=== PATIENT | female | born 1950 | race Caucasian/White ===

== ENCOUNTER 2020-11-20 21:41 | Observation (INO) | payer MEDICARE ==
[2020-11-20] MEDS ORDERED: DECADRON 10MG INJ. IV ONE (22:06)
[2020-11-20] MEDS ORDERED: Zofran 4 MG/2 ML VIAL IV ONE (22:09)
[2020-11-20] MEDS ORDERED: DECADRON 10MG INJ. ONE (22:11)
[2020-11-20] MEDS ORDERED: Zofran 4 MG/2 ML VIAL ONE (22:11)
[2020-11-20 22:15] LABS: Absolute Neutrophil Ct (ANC) 2.46 (1.4-6.9); BASOPHIL % 0.5 % (0.0-0.4); Basophil (Absolute #) 0.02 (0-0.4); Eosinophil % 0.5 % (0.00-5.0); Eosinophil (Absolute #) 0.02 (0-0.5); Hematocrit 43.9 % (35-47); Hemoglobin 14.3 gm/dl (12.0-16.0); Lymphocyte (Absolute #) 1.35 (1.0-4.6); Lymphocytes % 32.1 % (24.0-44.0); Mean Cell Volume 87.5 fl (78-100); Mean Corpuscular Hemoglobin 28.5 pg (26-32); Mean Corpuscular Hgb Concent. 32.6 g/dl (32-36); Mean Platelet Volume 11.6 fl (7.5-11.0); Monocyte (Absolute #) 0.35 (0.0-1.3); Monocytes % 8.3 % (0.0-12.0); Neutrophil % 58.6 % (36.0-66.0); Platelet Count 171 K/mm3 (150-450); Red Blood Count 5.02 M/mm3 (4.1-5.4); Red Cell Distribution Width 13.1 % (11.5-14.0); White Blood Count 4.2 K/mm3 (4.0-10.5)
[2020-11-20 22:32] LABS: ALBUMIN 4.1 g/dL (3.5-5.0); ALKALINE PHOSPHATASE 69 U/L (38-126); BLOOD UREA NITROGEN 11 mg/dL (7-17); CHLORIDE 106 mmol/L (98-107); Carbon Dioxide 20 mmol/L (22-30); Creatinine 1 0.86 mg/dL (0.52-1.04); EST GLOMERULAR FILTRATION RATE > 60.0 ML/MIN; NT PRO BNP 170 pg/mL (0-900); Potassium 4.5 mmol/L (3.5-5.1); SGOT/AST 76 U/L (14-36); SGPT/ALT 74 U/L (0-35); SODIUM 134 mmol/L (137-145); Total Protein 7.4 g/dL (6.3-8.2)
[2020-11-20 22:33] LABS: Glucose 151 mg/dL (74-106)
[2020-11-20 23:29] LABS: Appearance SLIGHTLY CLOUDY (CLEAR); Bilirubin NEGATIVE (NEGATIVE); Blood SMALL Ery/ul (0-5); Epithelial Cells RARE /HPF (FEW); Glucose NEGATIVE (NEGATIVE); Ketones NEGATIVE (NEGATIVE); Leukocyte Esterase NEGATIVE (NEGATIVE); Mucus SLIGHT /HPF (NEGATIVE); Nitrite NEGATIVE (NEGATIVE); Protein,Urine Dip NEGATIVE (Negative); RBC 0-2 /HPF (0-2); Urobilinogen NEGATIVE mg/dL (0-1); WBC 0-2 /HPF (0-5)
[2020-11-20] MEDS ORDERED: TYLENOL 325 MG PO STA (23:36)
[2020-11-20] MEDS ORDERED: TYLENOL 325 MG ONE (23:36)
--- NOTE | 2020-11-20 23:52 | ERPHSYRPT ---
- History of Present Illness Time Seen by Provider: 11/20/20 21:45 Source: patient Exam Limitations: no limitations Patient Subjective Stated Complaint: " I have felt short of breath since Monday and it's getting worse, I think I have pneumonia. I've had a cough and headache and I vomited twice on my way here. I felt like I was going to ". Triage Nursing Assessment: Pt presents to ER with complaints of shortness of breath since Monday . Pt is alert and oriented x3. Respirations slightly labored at this time, lungs clear and equal throughout. Has intermittent productive cough. Skin is pink, warm, and dry. Pt admits to vomiting x 2 en route to hospital, denies diarrrhea. Complains of headache and rates pain 8/10 scale. Denies any recent Covid exposure that she is aware of. Physician History: Patient is a 70-year-old female presents to our emergency department with complaints of progressive shortness of breath. Symptoms started Monday approximately 1 week ago. Patient states that she feels significantly worse. Patient admits to a productive cough. Patient has a moderate global headache rated 8 out of 10. No trauma. No fever. No neck pain. No photophobia. Patient has no meningeal signs. Patient vomited twice in route to our ED. Patient denies numbness tingling or weakness. No chest pain. Patient voices no other complaints concerns at this time. Patient denies Covid exposure. Timing/Duration: week(s) Severity: moderate Modifying Factors: Improves With: movement, rest Associated Symptoms: nausea, vomiting, shortness of breath, cough, No chest pain, No fever Allergies/Adverse Reactions: No Known Drug Allergies Allergy (Verified 11/20/20 21:50) Hx Tetanus, Diphtheria Vaccination/Date Given: Yes Hx Influenza Vaccination/Date Given: Yes Hx Pneumococcal Vaccination/Date Given: Yes Immunizations Up to Date: Yes Travel Risk - International Travel Have you traveled outside of the country in past 3 weeks: No - Coronavirus Screening Are you exhibiting any of the following symptoms?: Yes Symptoms: Fever, Cough: New Onset, Shortness of Breath, Vomiting/Diarrhea, Headaches/Body Aches/Fatigue - Review of Systems Constitutional: No Symptoms, No Fever, No Chills Eyes: No Symptoms Ears, Nose, & Throat: No Symptoms Respiratory: No Symptoms, No Cough, No Dyspnea Cardiac: No Symptoms, No Chest Pain, No Edema, No Syncope Abdominal/Gastrointestinal: No Symptoms, No Abdominal Pain, No Nausea, No Vomiting, No Diarrhea Genitourinary Symptoms: No Symptoms, No Dysuria Musculoskeletal: No Symptoms, No Back Pain, No Neck Pain Skin: No Symptoms, No Rash Neurological: No Symptoms, No Dizziness, No Focal Weakness, No Sensory Changes Psychological: No Symptoms Endocrine: No Symptoms Hematologic/Lymphatic: No Symptoms Immunological/Allergic: No Symptoms All Other Systems: Reviewed and Negative - Past Medical History Pertinent Past Medical History: Yes Neurological History: No Pertinent History ENT History: Cataracts Cardiac History: No Pertinent History Respiratory History: No Pertinent History Endocrine Medical History: No Pertinent History Musculoskeletal History: Arthritis GI Medical History: Irritable Bowel History: No Pertinent History Psycho-Social History: No Pertinent History Female Reproductive Disorders: No Pertinent History Other Medical History: left middle finger pip joint. just starting,. - Past Surgical History Past Surgical History: Yes Neuro Surgical History: No Pertinent History Cardiac: No Pertinent History Respiratory: No Pertinent History Gastrointestinal: Hemorrhoidectomy Genitourinary: No Pertinent History Musculoskeletal: No Pertinent History Female Surgical History: Hysterectomy, Other Other Surgical History: bridger cataract removed with lense implants,wens removed from scalp. d&c - Social History Smoking Status: Never smoker Exposure to second hand smoke: No Drug Use: none Patient Lives Alone: No - Nursing Vital Signs Nursing Vital Signs: Initial Vital Signs Temperature 99.9 F 11/20/20 21:42 Pulse Rate 89 11/20/20 21:42 Respiratory Rate 20 11/20/20 21:42 Blood Pressure 161/101 11/20/20 21:42 O2 Sat by Pulse Oximetry 94 L 11/20/20 21:42 Pain Scale Pain Intensity 7 - Physical Exam General Appearance: no apparent distress, alert Eye Exam: PERRL/EOMI, eyes nml inspection Ears, Nose, Throat Exam: normal ENT inspection, TMs normal, pharynx normal, moist mucous membranes Neck Exam: normal inspection, non-tender, supple, full range of motion Respiratory Exam: diminished breath sounds, other (Clear but diminished breath sounds bilaterally. No acute respiratory distress.), No respiratory distress Cardiovascular Exam: regular rate/rhythm, normal heart sounds, normal peripheral pulses Gastrointestinal/Abdomen Exam: soft, normal bowel sounds, No tenderness, No mass Back Exam: normal inspection, normal range of motion, No CVA tenderness, No vertebral tenderness Extremity Exam: normal inspection, normal range of motion, pelvis stable Neurologic Exam: alert, oriented x 3, cooperative, normal mood/affect, nml cereb ellar function, nml station & gait, sensation nml, No motor deficits Skin Exam: normal color, warm, dry, No rash Lymphatic Exam: No adenopathy SpO2 Interpretation: normal SpO2: 97 O2 Delivery: Room Air - Course Nursing assessment & vital signs reviewed: Yes EKG Interpreted by Me: RATE (89), Sinus Rhythm, NORMAL AXIS, NORMAL INTERVALS - Radiology Exams Chest X-ray Interpretation: Interpreted by me (Atelectasis at bases. No cardiomegaly normal bony thorax. No pneumothorax.) Ordered Tests: Active Orders 24 hr Category Date Time Status Capacitor Repairer STAT Care 11/20/20 22:02 Active EKG-ER Only STAT Care 11/20/20 22:01 Active IV Insertion STAT Care 11/20/20 22:01 Active IV Insertion-2nd Peripheral STAT Care 11/20/20 22:07 Active Oxygen-ED Only Nasal Cannula 2 lpm Care 11/20/20 22:07 Active Pulse Oximetry (ED) STAT Care 11/20/20 22:01 Active CHEST 1 VIEW (PORTABLE) Stat Exams 11/20/20 22:02 Taken CBC W DIFF Stat Lab 11/20/20 21:50 Completed CMP Stat Lab 11/20/20 21:50 Completed MAGNESIUM Stat Lab 11/20/20 21:50 Completed NT PRO BNP Stat Lab 11/20/20 21:50 Completed TROPONIN Q3H Lab 11/20/20 21:50 Completed TROPONIN Q3H Lab 11/21/20 01:15 Ordered TROPONIN Q3H Lab 11/21/20 04:15 Ordered TROPONIN Q3H Lab 11/21/20 07:15 Ordered TROPONIN Q3H Lab 11/21/20 10:15 Ordered UA W/RFX UR CULTURE Stat Lab 11/20/20 23:18 Completed Medication Summary Discontinued Medications Generic Name Dose Route Start Last Admin Trade Name Freq PRN Reason Stop Dose Admin Acetaminophen 975 mg 11/20/20 23:36 11/20/20 23:37 Tylenol 325 Mg PO 11/20/20 23:37 975 mg STAT STA Administration Acetaminophen Confirm 11/20/20 23:36 Tylenol 325 Mg Administered 11/20/20 23:37 Dose 975 mg .ROUTE .STK-MED ONE Dexamethasone Sodium Phosphate 6 mg 11/20/20 22:06 11/20/20 22:13 Decadron 10mg Inj. IV 11/20/20 22:07 6 mg STAT ONE Administration Dexamethasone Sodium Phosphate Confirm 11/20/20 22:11 Decadron 10mg Inj. Administered 11/20/20 22:12 Dose 10 mg .ROUTE .STK-MED ONE Ondansetron HCl 4 mg 11/20/20 22:09 11/20/20 22:13 Zofran 4 Mg/2 Ml Vial IV 11/20/20 22:10 4 mg STAT ONE Administration Ondansetron HCl Confirm 11/20/20 22:11 Zofran 4 Mg/2 Ml Vial Administered 11/20/20 22:12 Dose 4 mg .ROUTE .STK-MED ONE Lab/Rad Data: Laboratory Result Diagrams 11/20/20 21:50 11/20/20 21:50 Laboratory Results 11/20/20 11/20/20 11/20/20 Range/Units 23:18 22:29 21:50 WBC (4.0-10.5) K/mm3 RBC (4.1-5.4) M/mm3 Hgb (12.0-16.0) gm/dl Hct (35-47) % MCV (78-100) fl MCH (26-32) pg MCHC (32-36) g/dl RDW (11.5-14.0) % Plt Count (150-450) K/mm3 MPV (7.5-11.0) fl Gran % (36.0-66.0) % Eos # (Auto) (0-0.5) Absolute Lymphs (auto) (1.0-4.6) Absolute Monos (auto) (0.0-1.3) Lymphocytes % (24.0-44.0) % Monocytes % (0.0-12.0) % Eosinophils % (0.00-5.0) % Basophils % (0.0-0.4) % Absolute Granulocytes (1.4-6.9) Basophils # (0-0.4) Sodium (137-145) mmol/L Potassium (3.5-5.1) mmol/L Chloride (98-107) mmol/L Carbon Dioxide (22-30) mmol/L Anion Gap (5-15) MEQ/L BUN (7-17) mg/dL Creatinine (0.52-1.04) mg/dL Estimated GFR ML/MIN Glucose (74-106) mg/dL Calcium (8.4-10.2) mg/dL Magnesium (1.6-2.3) mg/dL Total Bilirubin (0.2-1.3) mg/dL AST (14-36) U/L ALT (0-35) U/L Alkaline Phosphatase (38-126) U/L Troponin I < 0.012 (0.000-0.034) ng/mL NT-Pro-B Natriuret Pep (0-900) pg/mL Serum Total Protein (6.3-8.2) g/dL Albumin (3.5-5.0) g/dL Urine Color YELLOW (YELLOW) Urine Appearance SLIGHTLY CLOUDY (CLEAR) Urine pH 5.0 (5-6) Ur Specific Cougar 1.020 (1.005-1.025) Urine Protein NEGATIVE (Negative) Urine Ketones NEGATIVE (NEGATIVE) Urine Blood SMALL (0-5) Desmond/ul Urine Nitrite NEGATIVE (NEGATIVE) Urine Bilirubin NEGATIVE (NEGATIVE) Urine Urobilinogen NEGATIVE (0-1) mg/dL Ur Leukocyte Esterase NEGATIVE (NEGATIVE) Urine WBC (Auto) 0-2 (0-5) /HPF Urine RBC (Auto) 0-2 (0-2) /HPF U Epithel Cells (Auto) RARE (FEW) /HPF Urine Bacteria (Auto) NONE (NEGATIVE) /HPF Urine Mucus (Auto) SLIGHT (NEGATIVE) /HPF Urine Culture Reflexed NO (NO) Urine Glucose NEGATIVE (NEGATIVE) mg/dL SARS-CoV-2 (PCR) POSITIVE A (NEGATIVE) 11/20/20 11/20/20 Range/Units 21:50 21:50 WBC 4.2 (4.0-10.5) K/mm3 RBC 5.02 (4.1-5.4) M/mm3 Hgb 14.3 (12.0-16.0) gm/dl Hct 43.9 (35-47) % MCV 87.5 (78-100) fl MCH 28.5 (26-32) pg MCHC 32.6 (32-36) g/dl RDW 13.1 (11.5-14.0) % Plt Count 171 (150-450) K/mm3 MPV 11.6 H (7.5-11.0) fl Gran % 58.6 (36.0-66.0) % Eos # (Auto) 0.02 (0-0.5) Absolute Lymphs (auto) 1.35 (1.0-4.6) Absolute Monos (auto) 0.35 (0.0-1.3) Lymphocytes % 32.1 (24.0-44.0) % Monocytes % 8.3 (0.0-12.0) % Eosinophils % 0.5 (0.00-5.0) % Basophils % 0.5 (0.0-0.4) % Absolute Granulocytes 2.46 (1.4-6.9) Basophils # 0.02 (0-0.4) Sodium 134 L (137-145) mmol/L Potassium 4.5 (3.5-5.1) mmol/L Chloride 106 (98-107) mmol/L Carbon Dioxide 20 L (22-30) mmol/L Anion Gap 12.0 (5-15) MEQ/L BUN 11 (7-17) mg/dL Creatinine 0.86 (0.52-1.04) mg/dL Estimated GFR > 60.0 ML/MIN Glucose 151 H (74-106) mg/dL Calcium 9.0 (8.4-10.2) mg/dL Magnesium 2.0 (1.6-2.3) mg/dL Total Bilirubin 0.70 (0.2-1.3) mg/dL AST 76 H (14-36) U/L ALT 74 H (0-35) U/L Alkaline Phosphatase 69 (38-126) U/L Troponin I (0.000-0.034) ng/mL NT-Pro-B Natriuret Pep 170 (0-900) pg/mL Serum Total Protein 7.4 (6.3-8.2) g/dL Albumin 4.1 (3.5-5.0) g/dL Urine Color (YELLOW) Urine Appearance (CLEAR) Urine pH (5-6) Ur Specific [place]ougar (1.005-1.025) Urine Protein (Negative) Urine Ketones (NEGATIVE) Urine Blood (0-5) Desmond/ul Urine Nitrite (NEGATIVE) Urine Bilirubin (NEGATIVE) Urine Urobilinogen (0-1) mg/dL Ur Leukocyte Esterase (NEGATIVE) Urine WBC (Auto) (0-5) /HPF Urine RBC (Auto) (0-2) /HPF U Epithel Cells (Auto) (FEW) /HPF Urine Bacteria (Auto) (NEGATIVE) /HPF Urine Mucus (Auto) (NEGATIVE) /HPF Urine Culture Reflexed (NO) Urine Glucose (NEGATIVE) mg/dL SARS-CoV-2 (PCR) (NEGATIVE) - Progress Progress: improved Progress Note: 11/20/20 23:58 Patient ambulated in the room. Patient sats dropped down to 91 to 92%. Patient felt very weak and fatigued. Patient requested admission due to feeling debilitated. Chest x-ray reviewed. No consolidation or infiltrate observed. No old chest x-rays for comparison. No pneumothorax. Patient is Covid positive. Decadron administered. Case discussed with Dr. Liu who accepts admission to the Covid unit. Plan of care discussed with patient. She agrees to admission at [facility] for further evaluation and treatment. Will see patient in: hospital (observation) Counseled pt/family regarding: lab results, diagnosis, rad results - Departure Departure Disposition: Observation Clinical Impression: COVID-19, Hypoxia, Generalized weakness, Nausea & vomiting, Cough Condition: Stable Critical Care Time: No Referrals: MAZIN NELSON NP [Primary Care Provider] -
[2020-11-21 05:00] LABS: Absolute Neutrophil Ct (ANC) 2.93 (1.4-6.9); BASOPHIL % 0.3 % (0.0-0.4); Basophil (Absolute #) 0.01 (0-0.4); Eosinophil (Absolute #) 0 (0-0.5); Hematocrit 43.2 % (35-47); Hemoglobin 14.1 gm/dl (12.0-16.0); Lymphocyte (Absolute #) 0.94 (1.0-4.6); Lymphocytes % 23.9 % (24.0-44.0); Mean Corpuscular Hemoglobin 28.7 pg (26-32); Mean Corpuscular Hgb Concent. 32.6 g/dl (32-36); Mean Platelet Volume 11.4 fl (7.5-11.0); Monocyte (Absolute #) 0.06 (0.0-1.3); Monocytes % 1.5 % (0.0-12.0); Neutrophil % 74.3 % (36.0-66.0); Platelet Count 158 K/mm3 (150-450); Red Blood Count 4.91 M/mm3 (4.1-5.4); Red Cell Distribution Width 13.1 % (11.5-14.0); White Blood Count 3.9 K/mm3 (4.0-10.5)
[2020-11-21 05:29] LABS: ALKALINE PHOSPHATASE 75 U/L (38-126); ANION GAP 11.2 MEQ/L (5-15); BLOOD UREA NITROGEN 12 mg/dL (7-17); CHLORIDE 104 mmol/L (98-107); Calcium 9.1 mg/dL (8.4-10.2); Carbon Dioxide 23 mmol/L (22-30); Creatinine 1 0.83 mg/dL (0.52-1.04); EST GLOMERULAR FILTRATION RATE > 60.0 ML/MIN; Glucose 241 mg/dL (74-106); Potassium 4.3 mmol/L (3.5-5.1); SGOT/AST 54 U/L (14-36); SGPT/ALT 69 U/L (0-35); SODIUM 134 mmol/L (137-145); Total Protein 7.3 g/dL (6.3-8.2)
--- NOTE | 2020-11-21 08:25 | XRAY ---
Indication: Short of breath. Comparison: None Portable apical lordotic chest clear. Heart and mediastinal structures within normal limits. Bony thorax intact with mild degenerative changes. Impression: Nonacute chest.
[2020-11-21 08:47] VITALS: BP 121/67; PULSE 83
[2020-11-21 09:09] VITALS: O2SAT 94
== END 2020-11-21 10:40 | disposition home or self-care (01) ==
LOC: ED 21:41 → MED SURG 11-21 00:02
PROVIDERS: ADMIT Family Medicine; ATTEND Family Medicine
DX: U07.1 COVID-19 (principal); R51.9 Headache, unspecified; R11.2 Nausea with vomiting, unspecified; R53.1 Weakness; R09.02 Hypoxemia
CPT/HCPCS: 36000; 36415; 71045; 80053; 81001; 83735; 83880; 84484; 85025; 93005; 93041; 93268; 94760; 94762; 96374; 96375; 99285; G0378; U0003; J1100; J2405; A9270-GY

== ENCOUNTER 2020-11-25 12:35 | Emergency (ER) | payer MEDICARE ==
[2020-11-25 13:22] LABS: Hematocrit 42.1 % (35-47); Hemoglobin 13.8 gm/dl (12.0-16.0); Mean Cell Volume 87.7 fl (78-100); Mean Corpuscular Hemoglobin 28.8 pg (26-32); Mean Corpuscular Hgb Concent. 32.8 g/dl (32-36); Mean Platelet Volume 11.5 fl (7.5-11.0); Platelet Count 181 K/mm3 (150-450); White Blood Count 4.3 K/mm3 (4.0-10.5)
[2020-11-25 13:35] LABS: Appearance SLIGHTLY CLOUDY (CLEAR); Bilirubin NEGATIVE (NEGATIVE); Blood NEGATIVE Ery/ul (0-5); Epithelial Cells RARE /HPF (FEW); Glucose NEGATIVE (NEGATIVE); Ketones NEGATIVE (NEGATIVE); Leukocyte Esterase NEGATIVE (NEGATIVE); Mucus SLIGHT /HPF (NEGATIVE); Nitrite NEGATIVE (NEGATIVE); Protein,Urine Dip NEGATIVE (Negative); Specific Gravity 1.023 (1.005-1.025); Urobilinogen NEGATIVE mg/dL (0-1); WBC 0-2 /HPF (0-5)
--- NOTE | 2020-11-25 13:39 | XRAY ---
Indication: Short of breath. Positive Covid 19. Comparison: November 20, 2020. Portable chest demonstrates new mild bibasilar interstitial alveolar opacities left greater than right without consolidation/large effusion. Remaining heart and upper lungs unremarkable.
[2020-11-25 14:03] LABS: ALBUMIN 3.9 g/dL (3.5-5.0); ALKALINE PHOSPHATASE 79 U/L (38-126); ANION GAP 12.1 MEQ/L (5-15); BLOOD UREA NITROGEN 14 mg/dL (7-17); CHLORIDE 103 mmol/L (98-107); Calcium 8.3 mg/dL (8.4-10.2); Carbon Dioxide 22 mmol/L (22-30); Creatinine 1 0.72 mg/dL (0.52-1.04); EST GLOMERULAR FILTRATION RATE > 60.0 ML/MIN; Glucose 164 mg/dL (74-106); MAGNESIUM 2.3 mg/dL (1.6-2.3); NT PRO BNP 108 pg/mL (0-900); Potassium 4.3 mmol/L (3.5-5.1); SGOT/AST 82 U/L (14-36); SGPT/ALT 84 U/L (0-35); SODIUM 133 mmol/L (137-145); Total Protein 7.2 g/dL (6.3-8.2)
--- NOTE | 2020-11-25 14:06 | ERPHSYRPT ---
- History of Present Illness Time Seen by Provider: 11/25/20 12:44 Source: patient Exam Limitations: no limitations Patient Subjective Stated Complaint: Pt states "I am not getting any better. I tested positive for covid on monday of last week here and was released on mon. I just feel horrible." Triage Nursing Assessment: Pt presented alert and oriented X3, skin pwd Pt ambulates with a slow steady gait, able to speak in clear full sentences pt slighty tachypneic, generalized weakness, Physician History: 70 years old female with positive COVID-19 almost a week ago was admitted for observation presented back with increasing generalized weakness fatigue, tiredness with body aches and shortness of breath especially with activity along with chest tightness and pressure feeling with dry cough. Patient also has a subjective feeling of fever and chills. Denies any abdominal pain but has occasional nausea without vomiting. Has decreased oral intake. Timing/Duration: day(s) (10) Activities at Onset: rest Severity of Dyspnea-Max: moderate Severity of Dyspnea-Current: moderate Modifying Factors: Worsens With: activity, coughing, deep breath Associated Symptoms: intermittent, cough, chest pain/discomfort, loss of appetite, lightheadedness, wheezing, chills, dizziness, heaviness, painful breathing, tightness Allergies/Adverse Reactions: No Known Drug Allergies Allergy (Verified 11/20/20 21:50) Hx Tetanus, Diphtheria Vaccination/Date Given: Yes Hx Influenza Vaccination/Date Given: Yes Hx Pneumococcal Vaccination/Date Given: Yes Immunizations Up to Date: Yes Travel Risk - International Travel Have you traveled outside of the country in past 3 weeks: No - Coronavirus Screening Are you exhibiting any of the following symptoms?: Yes Symptoms: Shortness of Breath, Headaches/Body Aches/Fatigue Close contact with a COVID-19 positive Pt in past 14-21 Days: No - Review of Systems Constitutional: Fever, Chills, Fatigue, Malaise, Weakness Eyes: No Symptoms Ears, Nose, & Throat: Nose Congestion Respiratory: Cough, Dyspnea Cardiac: Chest Pain Genitourinary Symptoms: No Symptoms Musculoskeletal: Myalgias Skin: No Symptoms Neurological: No Symptoms Psychological: No Symptoms Endocrine: No Symptoms Hematologic/Lymphatic: No Symptoms Immunological/Allergic: No Symptoms - Past Medical History Pertinent Past Medical History: Yes Neurological History: No Pertinent History ENT History: Cataracts Cardiac History: No Pertinent History Respiratory History: No Pertinent History Endocrine Medical History: No Pertinent History Musculoskeletal History: Arthritis GI Medical History: Irritable Bowel History: No Pertinent History Psycho-Social History: No Pertinent History Female Reproductive Disorders: No Pertinent History Other Medical History: left middle finger pip joint. just starting,. - Past Surgical History Past Surgical History: Yes Neuro Surgical History: No Pertinent History Cardiac: No Pertinent History Respiratory: No Pertinent History Gastrointestinal: Hemorrhoidectomy Genitourinary: No Pertinent History Musculoskeletal: No Pertinent History Female Surgical History: Hysterectomy, Other Other Surgical History: bridger cataract removed with lense implants,wens removed from scalp. d&c - Social History Smoking Status: Never smoker Exposure to second hand smoke: No Drug Use: none Patient Lives Alone: No - Female History Hx Now: No - Nursing Vital Signs Nursing Vital Signs: Initial Vital Signs Temperature 98.9 F 11/25/20 12:47 Pulse Rate 91 H 11/25/20 12:47 Respiratory Rate 22 11/25/20 12:47 Blood Pressure 152/97 11/25/20 12:47 O2 Sat by Pulse Oximetry 94 L 11/25/20 12:47 Pain Scale Pain Intensity 4 - Physical Exam General Appearance: no apparent distress, alert, anxiety Eye Exam: PERRL/EOMI, eyes nml inspection Ears, Nose, Throat Exam: hearing grossly normal, nasal congestion, pharyngeal erythema Neck Exam: normal inspection, supple, full range of motion Respiratory Exam: normal breath sounds, diminished breath sounds, crackles/rales, wheezing Cardiovascular/Chest Exam: normal heart sounds, regular rate/rhythm Abdominal/Gastrointestinal Exam: soft, normal bowel sounds, No tenderness Extremity Exam: non-tender, normal range of motion Neurologic Exam: alert, oriented x 3, cooperative, transformer builder II-XII nml as tested Skin Exam: normal color SpO2 Interpretation: normal SpO2: 94 O2 Delivery: Room Air Ordered Tests: Active Orders 24 hr Category Date Time Status Public Services Librarian STAT Care 11/25/20 13:12 Active EKG-ER Only STAT Care 11/25/20 13:11 Active IV Insertion STAT Care 11/25/20 13:11 Active Oxygen-ED Only Nasal Cannula 2 lpm Care 11/25/20 13:11 Active CHEST 1 VIEW (PORTABLE) Stat Exams 11/25/20 13:12 Completed CHEST WITH CONTRAST [CT] Stat Exams 11/25/20 14:39 Completed BLOOD CULTURE Stat Lab 11/25/20 13:45 Received CBC W DIFF Stat Lab 11/25/20 13:28 Completed CMP Stat Lab 11/25/20 13:28 Completed D-DIMER QUANTITATIVE Stat Lab 11/25/20 14:02 Completed Lactic Acid Stat Lab 11/25/20 13:11 Completed MAGNESIUM Stat Lab 11/25/20 13:28 Completed Manual Differential NC Stat Lab 11/25/20 13:28 Completed NT PRO BNP Stat Lab 11/25/20 13:28 Completed PROTIME WITH INR Stat Lab 11/25/20 14:02 Completed PTT Stat Lab 11/25/20 14:02 Completed TROPONIN Q3H Lab 11/25/20 13:28 Completed TROPONIN Q3H Lab 11/26/20 01:15 Ordered UA W/RFX UR CULTURE Stat Lab 11/25/20 13:28 Completed Respiratory MDI STAT RT 11/25/20 16:24 Active Respiratory Therapy Assessment DAILY RT 11/25/20 16:25 Active Medication Summary Discontinued Medications Generic Name Dose Route Start Last Admin Trade Name Freq PRN Reason Stop Dose Admin Albuterol Sulfate 4 puff 11/25/20 15:31 11/25/20 16:00 Ventolin Common Canister IH 11/25/20 15:32 4 puff ONCE STA Administration Dexamethasone Sodium Phosphate 6 mg 11/25/20 15:31 11/25/20 15:48 Decadron 4 Mg Inj IV 11/25/20 15:32 6 mg STAT ONE Administration Dexamethasone Sodium Phosphate Confirm 11/25/20 15:46 Decadron 4 Mg Inj Administered 11/25/20 15:47 Dose 8 mg .ROUTE .STK-MED ONE Doxycycline Hyclate 100 mg 11/25/20 16:02 11/25/20 16:36 Vibramycin 100 Mg PO 11/25/20 16:03 100 mg STAT ONE Administration Doxycycline Hyclate Confirm 11/25/20 16:33 Vibramycin 100 Mg Administered 11/25/20 16:34 Dose 100 mg .ROUTE .STK-MED ONE Lab/Rad Data: Laboratory Result Diagrams 11/25/20 13:28 11/25/20 13:28 Laboratory Results 11/25/20 11/25/20 11/25/20 Range/Units 14:02 13:28 13:28 WBC (4.0-10.5) K/mm3 RBC (4.1-5.4) M/mm3 Hgb (12.0-16.0) gm/dl Hct (35-47) % MCV (78-100) fl MCH (26-32) pg MCHC (32-36) g/dl RDW (11.5-14.0) % Plt Count (150-450) K/mm3 MPV (7.5-11.0) fl PT 12.2 (9.95-12.35) SECONDS INR 1.08 (0.8-3.0) APTT 28.2 (25.3-37.0) SECONDS D-Dimer 870 H* (215-500) ng/mL Sodium (137-145) mmol/L Potassium (3.5-5.1) mmol/L Chloride (98-107) mmol/L Carbon Dioxide (22-30) mmol/L Anion Gap (5-15) MEQ/L BUN (7-17) mg/dL Creatinine (0.52-1.04) mg/dL Estimated GFR ML/MIN Glucose (74-106) mg/dL Lactic Acid (0.4-2.0) Calcium (8.4-10.2) mg/dL Magnesium (1.6-2.3) mg/dL Total Bilirubin (0.2-1.3) mg/dL AST (14-36) U/L ALT (0-35) U/L Alkaline Phosphatase (38-126) U/L Troponin I < 0.012 (0.000-0.034) ng/mL NT-Pro-B Natriuret Pep (0-900) pg/mL Serum Total Protein (6.3-8.2) g/dL Albumin (3.5-5.0) g/dL Urine Color YELLOW (YELLOW) Urine Appearance SLIGHTLY CLOUDY (CLEAR) Urine pH 5.0 (5-6) Ur Specific [place] 1.023 (1.005-1.025) Urine Protein NEGATIVE (Negative) Urine Ketones NEGATIVE (NEGATIVE) Urine Blood NEGATIVE (0-5) Desmond/ul Urine Nitrite NEGATIVE (NEGATIVE) Urine Bilirubin NEGATIVE (NEGATIVE) Urine Urobilinogen NEGATIVE (0-1) mg/dL Ur Leukocyte Esterase NEGATIVE (NEGATIVE) Urine WBC (Auto) 0-2 (0-5) /HPF Urine RBC (Auto) NONE (0-2) /HPF U Epithel Cells (Auto) RARE (FEW) /HPF Urine Mucus (Auto) SLIGHT (NEGATIVE) /HPF Urine Culture Reflexed NO (NO) Urine Glucose NEGATIVE (NEGATIVE) mg/dL 11/25/20 11/25/20 11/25/20 Range/Units 13:28 13:28 13:11 WBC 4.3 (4.0-10.5) K/mm3 RBC 4.80 (4.1-5.4) M/mm3 Hgb 13.8 (12.0-16.0) gm/dl Hct 42.1 (35-47) % MCV 87.7 (78-100) fl MCH 28.8 (26-32) pg MCHC 32.8 (32-36) g/dl RDW 13.0 (11.5-14.0) % Plt Count 181 (150-450) K/mm3 MPV 11.5 H (7.5-11.0) fl PT (9.95-12.35) SECONDS INR (0.8-3.0) APTT (25.3-37.0) SECONDS D-Dimer (215-500) ng/mL Sodium 133 L (137-145) mmol/L Potassium 4.3 (3.5-5.1) mmol/L Chloride 103 (98-107) mmol/L Carbon Dioxide 22 (22-30) mmol/L Anion Gap 12.1 (5-15) MEQ/L BUN 14 (7-17) mg/dL Creatinine 0.72 (0.52-1.04) mg/dL Estimated GFR > 60.0 ML/MIN Glucose 164 H (74-106) mg/dL Lactic Acid 3.0 H (0.4-2.0) Calcium 8.3 L (8.4-10.2) mg/dL Magnesium 2.3 (1.6-2.3) mg/dL Total Bilirubin 0.30 (0.2-1.3) mg/dL AST 82 H (14-36) U/L ALT 84 H (0-35) U/L Alkaline Phosphatase 79 (38-126) U/L Troponin I (0.000-0.034) ng/mL NT-Pro-B Natriuret Pep 108 (0-900) pg/mL Serum Total Protein 7.2 (6.3-8.2) g/dL Albumin 3.9 (3.5-5.0) g/dL Urine Color (YELLOW) Urine Appearance (CLEAR) Urine pH (5-6) Ur Specific [place] (1.005-1.025) Urine Protein (Negative) Urine Ketones (NEGATIVE) Urine Blood (0-5) Desmond/ul Urine Nitrite (NEGATIVE) Urine Bilirubin (NEGATIVE) Urine Urobilinogen (0-1) mg/dL Ur Leukocyte Esterase (NEGATIVE) Urine WBC (Auto) (0-5) /HPF Urine RBC (Auto) (0-2) /HPF U Epithel Cells (Auto) (FEW) /HPF Urine Mucus (Auto) (NEGATIVE) /HPF Urine Culture Reflexed (NO) Urine Glucose (NEGATIVE) mg/dL - Progress Progress: re-examined Air Movement: good Progress Note: 11/25/20 16:03 70 years old with Covid positive last week, symptomatic since [place] sal is evaluated for generalized weakness fatigue, chest tightness pressure and shortness of breath with flulike symptoms. Patient was not in any distress on presentation, maintaining oxygen saturation around 94% on room air. Nontoxic appearance. Work-up showed normal white count, grossly unremarkable chemistries. Has a lactate of 3 and chest x-ray suggesting bilateral airspace disease which is consistent with Covid. No focal consolidation or effusion. I have given her steroid and inhaler in here. I have discussed with Dr. Harris who has seen patient in previous admission and knows her well, reviewed presentation work-up and recommended continue with steroids. I will also continue with doxy to go home. Do not think patient needs to be admitted at thi s point and its part of the post Covid resolution process. I have discussed with patient in detail who understand and agrees with going home. She has elevated D-dimer and CTA is done which is negative. Antibiotics given: Yes Discussed with Dr.: Other (Dr. Harris) Counseled pt/family regarding: lab results, diagnosis, need for follow-up, rad results - Departure Departure Disposition: Home Clinical Impression: Generalized weakness, COVID-19 Condition: Stable Critical Care Time: No Referrals: MAZIN NELSON, [employer]EDER [Primary Care Provider] - (12 days for reevaluation) Instructions: Shortness of Breath (Dyspnea) (DC) Additional Instructions: Tylenol as needed. Keep yourself well-hydrated. Use inhaler along with steroid and antibiotics as recommended. Follow-up with primary care physician for reevaluation. Return to ER for worsening lysed weakness/fatigue/shortness of breath/fever chills etc. Prescriptions: dexAMETHasone [Dexamethasone] 1.5 mg PO DAILY 13 Days #1 tab.ds.pk Albuterol 8 gm Mdi Hfa [Ventolin Hfa MDI] 8 gm IH Q4H #1 hfa.aer.ad Doxycycline Hyclate 100 mg [Vibramycin 100 MG] 100 mg PO BID #14 tab
[2020-11-25 14:30] LABS: INR 1.08 (0.8-3.0); PROTIME 12.2 SECONDS (9.95-12.35)
[2020-11-25 14:32] LABS: PTT 28.2 SECONDS (25.3-37.0)
[2020-11-25] MEDS ORDERED: Decadron 4 MG INJ IV ONE (15:31)
[2020-11-25] MEDS ORDERED: VENTOLIN COMMON CANISTER IH STA (15:31)
[2020-11-25] MEDS ORDERED: Decadron 4 MG INJ ONE (15:46)
[2020-11-25] MEDS ORDERED: Vibramycin 100 MG PO ONE (16:02)
[2020-11-25 16:30] VITALS: PULSE 87
[2020-11-25] MEDS ORDERED: Vibramycin 100 MG ONE (16:33)
--- NOTE | 2020-11-25 16:39 | XRAY ---
Indication: Short of breath. Positive Covid 19. Multiple contiguous axial images obtained through the chest using 100 cc Isovue 370 contrast and PE protocol. Comparison: None There is good opacification of the pulmonary arteries to include the lobar and segmental branches. No pulmonary embolus. Heart is not enlarged. Small pericardial effusion/thickening posteriorly. Aorta is normal in course and caliber. Small nonpathologic mediastinal/hilar lymph nodes. No pathologic lymphadenopathy. Small hiatal hernia. Lungs demonstrates mild bilateral diffuse patchy airspace disease greatest left lower lobe with tiny bibasilar effusions. Bony thorax intact with mild degenerative changes throughout the spine. Limited upper abdomen demonstrates fatty liver. Impression: 1. Negative pulmonary embolus. 2. Bilateral patchy airspace disease with tiny bibasilar effusions. 3. Incidental small hiatal hernia and fatty liver.
[2020-11-25 16:55] VITALS: BP 140/88
[2020-11-25 16:56] VITALS: O2SAT 94
[2020-11-25 17:19] LABS: BAND 2 % (0.0-2.0); Lymphocytes 24 % (24-44); Monocyte 4 % (0.0-12.0); Neutrophils 70 % (36.0-66.0); Total Cells Counted 100
[2020-11-25 17:21] LABS: Platelet Estimate NORMAL (NORMAL)
== END 2020-11-25 17:32 | disposition home or self-care (01) ==
LOC: ED 12:35
DX: U07.1 COVID-19 (principal); R53.83 Other fatigue; R06.02 Shortness of breath; R07.89 Other chest pain; R05 Cough
CPT/HCPCS: 36000; 36415; 71045; 71260; 80053; 81001; 83605; 83735; 83880; 84484; 85025; 85379; 85610; 85730; 87040; 93005; 93041; 94640; 96374; 99284; J1100; A9270-GY

== ENCOUNTER 2022-12-30 10:04 | Emergency (ER) | payer MEDICARE, OTHER ==
[2022-12-30] MEDS ORDERED: TORAdol 30 mg Injection IM ONE (10:38)
--- NOTE | 2022-12-30 10:42 | ERPHSYRPT ---
- History of Present Illness Source: patient Exam Limitations: no limitations Patient Subjective Stated Complaint: Pt states "I am not sure what is going on but I woke up the other day and the back of my neck was hurting so bad and it is between my shoulderblades and down my left arm. It hurts to move, it hurts to do anything." Triage Nursing Assessment: Pt presented alert and oriented X 3, skin pwd. Pt ambulates with an upright steady gait able to speak in clear full sentences. Pt moaning and will grunt and moan every movement. Physician History: 71 yo WF w L posterior cervical pain x 2 days. Pain is rated a 10 on scale and worse w movement. Pain radiates down her posterior L arm. She denies injury/chest pain/nausea/vomiting/diaphoresis/fever/cough. Timing/Duration: other (2 days) Modifying Factors: Improves With: movement Associated Symptoms: denies symptoms Allergies/Adverse Reactions: No Known Drug Allergies Allergy (Verified 11/20/20 21:50) Hx Tetanus, Diphtheria Vaccination/Date Given: Yes Hx Influenza Vaccination/Date Given: Yes Hx Pneumococcal Vaccination/Date Given: Yes Immunizations Up to Date: Yes Travel Risk - International Travel Have you traveled outside of the country in past 3 weeks: No - Coronavirus Screening Are you exhibiting any of the following symptoms?: No Close contact with a COVID-19 positive Pt in past 14-21 Days: No - Vaccine Status Have you recieved a Covid-19 vaccination: Yes Coronary Care Unit Nurse: Given.to - Vaccination Dates Date of 2cond Vaccination (if applicable): 2020 - Review of Systems Constitutional: No Symptoms Eyes: No Symptoms Ears, Nose, & Throat: No Symptoms Respiratory: No Symptoms Cardiac: No Symptoms Abdominal/Gastrointestinal: No Symptoms Genitourinary Symptoms: No Symptoms Skin: No Symptoms Neurological: No Symptoms Psychological: No Symptoms Endocrine: No Symptoms Hematologic/Lymphatic: No Symptoms Immunological/Allergic: No Symptoms - Past Medical History Pertinent Past Medical History: Yes Neurological History: No Pertinent History ENT History: Cataracts Cardiac History: No Pertinent History Respiratory History: No Pertinent History Endocrine Medical History: Diabetes Type II, Other Musculoskeletal History: Osteoarthritis GI Medical History: Irritable Bowel History: No Pertinent History Psycho-Social History: No Pertinent History Female Reproductive Disorders: No Pertinent History Other Medical History: HAVING LIVER CHECKED, - Past Surgical History Past Surgical History: Yes Neuro Surgical History: No Pertinent History Cardiac: No Pertinent History Respiratory: No Pertinent History Gastrointestinal: Hemorrhoidectomy Genitourinary: No Pertinent History Musculoskeletal: No Pertinent History Female Surgical History: Hysterectomy, Other Other Surgical History: bridger cataract removed with lense implants,wens removed from scalp. d&c - Social History Smoking Status: Never smoker Exposure to second hand smoke: No Drug Use: none Patient Lives Alone: No - Nursing Vital Signs Nursing Vital Signs: Initial Vital Signs Temperature 97.6 F 12/30/22 10:23 Pulse Rate 78 12/30/22 10:23 Respiratory Rate 24 12/30/22 10:23 Blood Pressure 163/85 12/30/22 10:23 O2 Sat by Pulse Oximetry 95 12/30/22 10:23 Pain Scale Pain Intensity 4 Hypertensive - Physical Exam General Appearance: no apparent distress Eye Exam: PERRL/EOMI, eyes nml inspection Ears, Nose, Throat Exam: normal ENT inspection, TMs normal, pharynx normal, moist mucous membranes Neck Exam: other (TTP L superior border of scapula and medial border of scapula/Good radial pulse, distal sensation, and capillary return) Respiratory Exam: normal breath sounds, lungs clear, airway intact Cardiovascular Exam: regular rate/rhythm, normal heart sounds, normal peripheral pulses, capillary refill <2 sec, No murmur Gastrointestinal/Abdomen Exam: soft, normal bowel sounds, No tenderness Back Exam: normal inspection, normal range of motion Extremity Exam: normal inspection, normal range of motion Neurologic Exam: alert, oriented x 3, cooperative, business relationship 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 II-XII nml as tested, normal mood/affect, nml cerebellar function, nml station & gait, sensation nml, No motor deficits, No sensory deficit Skin Exam: normal color, warm, dry Lymphatic Exam: No adenopathy SpO2 Interpretation: normal SpO2: 95 O2 Delivery: Room Air - Course Nursing assessment & vital signs reviewed: Yes EKG Interpreted by Me: RATE (NSR/Rate74/Normal QT-QTc/Tall Rwave V2/Flat Twaves) - CT Exams Cervical Spine CT Interpretation: Discussed w/radiologist (Minimal C6-C7 disc space narrowing/Minimal R carotid calcifications) Ordered Tests: Active Orders 24 hr Category Date Time Status EKG-ER Only STAT Care 12/30/22 10:27 Active CERVICAL SPINE WO CONTRAST [CT] Stat Exams 12/30/22 11:37 Completed CBC W DIFF Stat Lab 12/30/22 10:48 Completed CMP Stat Lab 12/30/22 10:48 Completed PROTIME WITH INR Stat Lab 12/30/22 10:48 Completed PTT Stat Lab 12/30/22 10:48 Completed TROPONIN Q4H Lab 12/30/22 10:48 Completed TROPONIN Q4H Lab 12/30/22 14:30 Ordered TROPONIN Q4H Lab 12/30/22 18:30 Ordered Medication Summary Discontinued Medications Generic Name Dose Route Start Last Admin Trade Name Arnoldq PRN Reason Stop Dose Admin Ketorolac Tromethamine 15 mg 12/30/22 10:38 12/30/22 10:46 Ketorolac Tromethamine 30 Mg/Ml Inj IM 12/30/22 10:39 15 mg STAT ONE Administration Ketorolac Tromethamine Confirm 12/30/22 10:43 Ketorolac Tromethamine 30 Mg/Ml Inj Administered 12/30/22 10:44 Dose 30 mg .ROUTE .STK-MED ONE Orphenadrine Citrate 60 mg 12/30/22 11:38 12/30/22 11:49 Orphenadrine Citrate 60 Mg/2 Ml Vial IM 12/30/22 11:39 60 mg STAT ONE Administration Orphenadrine Citrate Confirm 12/30/22 11:47 Orphenadrine Citrate 60 Mg/2 Ml Vial Administered 12/30/22 11:48 Dose 60 mg .ROUTE .STK-MED ONE Lab/Rad Data: Laboratory Result Diagrams 12/30/22 10:48 12/30/22 10:48 Laboratory Results 12/30/22 12/30/22 12/30/22 Range/Units 10:48 10:48 10:48 WBC (4.0-10.5) x10^3/uL RBC (4.1-5.4) x10^6/uL Hgb (12.0-16.0) g/dL Hct (35-47) % MCV (78-100) fL MCH (26-32) pg MCHC (32-36) g/dL RDW (11.5-14.0) % Plt Count (150-450) x10^3/uL MPV (7.5-11.0) fL Gran % (36.0-66.0) % Immature Gran % (Auto) (0.00-0.4) % Nucleat RBC Rel Count (0.00-0.1) % Eos # (Auto) (0-0.5) x10^3/uL Immature Gran # (Auto) (0.00-0.03) x10^3u/L Absolute Lymphs (auto) (1.0-4.6) x10^3/uL Absolute Monos (auto) (0.0-1.3) x10^3/uL Absolute Nucleated RBC (0.00-0.01) x10^3u/L Lymphocytes % (24.0-44.0) % Monocytes % (0.0-12.0) % Eosinophils % (0.00-5.0) % Basophils % (0.0-0.4) % Absolute Granulocytes (1.4-6.9) x10^3/uL Basophils # (0-0.4) x10^3/uL PT 10.8 (9.4-12.5) SECONDS INR 1.02 (0.8-3.0) APTT 26.6 (25.1-36.5) SECONDS Sodium 136 L (137-145) mmol/L Potassium 4.2 (3.5-5.1) mmol/L Chloride 106 (98-107) mmol/L Carbon Dioxide 21 L (22-30) mmol/L Anion Gap 13.9 (5-15) MEQ/L BUN 13 (7-17) mg/dL Creatinine 0.90 (0.52-1.04) mg/dL Estimated GFR > 60.0 ML/MIN Glucose 242 H (74-106) mg/dL Calcium 8.5 (8.4-10.2) mg/dL Total Bilirubin 0.40 (0.2-1.3) mg/dL AST 33 (14-36) U/L ALT 31 (0-35) U/L Alkaline Phosphatase 86 (38-126) U/L Troponin I < 0.012 (0.000-0.034) ng/mL Serum Total Protein 6.9 (6.3-8.2) g/dL Albumin 4.1 (3.5-5.0) g/dL 12/30/22 Range/Units 10:48 WBC 5.9 (4.0-10.5) x10^3/uL RBC 4.88 (4.1-5.4) x10^6/uL Hgb 13.9 (12.0-16.0) g/dL Hct 42.0 (35-47) % MCV 86.1 (78-100) fL MCH 28.5 (26-32) pg MCHC 33.1 (32-36) g/dL RDW 12.4 (11.5-14.0) % Plt Count 232 (150-450) x10^3/uL MPV 11.8 H (7.5-11.0) fL Gran % 64.6 (36.0-66.0) % Immature Gran % (Auto) 0.3 (0.00-0.4) % Nucleat RBC Rel Count 0.0 (0.00-0.1) % Eos # (Auto) 0.18 (0-0.5) x10^3/uL Immature Gran # (Auto) 0.02 (0.00-0.03) x10^3u/L Absolute Lymphs (auto) 1.51 (1.0-4.6) x10^3/uL Absolute Monos (auto) 0.33 (0.0-1.3) x10^3/uL Absolute Nucleated RBC 0.00 (0.00-0.01) x10^3u/L Lymphocytes % 25.7 (24.0-44.0) % Monocytes % 5.6 (0.0-12.0) % Eosinophils % 3.1 (0.00-5.0) % Basophils % 0.7 (0.0-0.4) % Absolute Granulocytes 3.79 (1.4-6.9) x10^3/uL Basophils # 0.04 (0-0.4) x10^3/uL PT (9.4-12.5) SECONDS INR (0.8-3.0) APTT (25.1-36.5) SECONDS Sodium (137-145) mmol/L Potassium (3.5-5.1) mmol/L Chloride (98-107) mmol/L Carbon Dioxide (22-30) mmol/L Anion Gap (5-15) MEQ/L BUN (7-17) mg/dL Creatinine (0.52-1.04) mg/dL Estimated GFR ML/MIN Glucose (74-106) mg/dL Calcium (8.4-10.2) mg/dL Total Bilirubin (0.2-1.3) mg/dL AST (14-36) U/L ALT (0-35) U/L Alkaline Phosphatase (38-126) U/L Troponin I (0.000-0.034) ng/mL Serum Total Protein (6.3-8.2) g/dL Albumin (3.5-5.0) g/dL - Progress Progress: improved Progress Note: 12/30/22 12:21 Minimal improvement w 15mg IM Toradol Marked improvement w 60mg IM Norflex Nursing note and vital signs reviewed Labs/EKG/CT results reviewed and shared w pt No food or housing insecurities noted Pain most likely due to L trapezius spasm/strain No evidence of cardiac cause of pain/EKG wo acute changes/Troponin WNL 12/30/22 12:25 Counseled pt/family regarding: lab results, diagnosis, need for follow-up, rad results Medical Desision Making - Diagnostic Testing Diagnostic Testing: Diagnostic tests were ordered,analyzed, and reviewed by me and used in my medical decision making for this patient. Radiologic studies (if ordered) were read by me initially then discussed with the radiologist . - Risk of complications Low Risk: Low risk of morbidity from additional dx testing or treatment - Departure Departure Disposition: Home Clinical Impression: Trapezius muscle spasm Condition: Stable Critical Care Time: No Referrals: MAZIN NELSON NP [Primary Care Provider] - Follow up/PCP as directed Instructions: Cervical Muscle Strain (DC), Generalized Neck Pain (DC) Additional Instructions: Rest/Heat/Massage Norflex an needed for pain Follow up with your family MD on Monday Prescriptions: Orphenadrine Citrate 100 mg [Norflex 100 MG Tablet] 100 mg PO BIDPRN PRN #10 tab PRN Reason: Pain
[2022-12-30] MEDS ORDERED: TORAdol 30 mg Injection ONE (10:43)
[2022-12-30 11:06] LABS: Absolute Neutrophil Ct (ANC) 3.79 x10^3/uL (1.4-6.9); BASOPHIL % 0.7 % (0.0-0.4); Basophil (Absolute #) 0.04 x10^3/uL (0-0.4); Eosinophil % 3.1 % (0.00-5.0); Eosinophil (Absolute #) 0.18 x10^3/uL (0-0.5); Hemoglobin 13.9 g/dL (12.0-16.0); IMMATURE GRAN # 0.02 x10^3u/L (0.00-0.03); IMMATURE GRAN % 0.3 % (0.00-0.4); Lymphocyte (Absolute #) 1.51 x10^3/uL (1.0-4.6); Lymphocytes % 25.7 % (24.0-44.0); Mean Cell Volume 86.1 fL (78-100); Mean Corpuscular Hemoglobin 28.5 pg (26-32); Mean Corpuscular Hgb Concent. 33.1 g/dL (32-36); Mean Platelet Volume 11.8 fL (7.5-11.0); Monocyte (Absolute #) 0.33 x10^3/uL (0.0-1.3); Monocytes % 5.6 % (0.0-12.0); Neutrophil % 64.6 % (36.0-66.0); Platelet Count 232 x10^3/uL (150-450); Red Blood Count 4.88 x10^6/uL (4.1-5.4); Red Cell Distribution Width 12.4 % (11.5-14.0); White Blood Count 5.9 x10^3/uL (4.0-10.5)
[2022-12-30 11:16] LABS: ALBUMIN 4.1 g/dL (3.5-5.0); ALKALINE PHOSPHATASE 86 U/L (38-126); ANION GAP 13.9 MEQ/L (5-15); BLOOD UREA NITROGEN 13 mg/dL (7-17); CHLORIDE 106 mmol/L (98-107); Calcium 8.5 mg/dL (8.4-10.2); Carbon Dioxide 21 mmol/L (22-30); EST GLOMERULAR FILTRATION RATE > 60.0 ML/MIN; Glucose 242 mg/dL (74-106); Potassium 4.2 mmol/L (3.5-5.1); SGOT/AST 33 U/L (14-36); SGPT/ALT 31 U/L (0-35); SODIUM 136 mmol/L (137-145); Total Protein 6.9 g/dL (6.3-8.2)
[2022-12-30 11:24] LABS: INR 1.02 (0.8-3.0); PROTIME 10.8 SECONDS (9.4-12.5); PTT 26.6 SECONDS (25.1-36.5)
[2022-12-30] MEDS ORDERED: Norflex 60 MG/2 ML IM ONE (11:38)
[2022-12-30] MEDS ORDERED: Norflex 60 MG/2 ML ONE (11:47)
--- NOTE | 2022-12-30 12:08 | XRAY ---
Indication: Neck pain radiating left shoulder. Multiple contiguous axial images obtained through the cervical spine. Sagittal and coronal reformatted images obtained. Comparison: None Axial images negative for acute fracture, suspicious bony lesions, or spinal canal stenosis. Minimal C6-C7 degenerative endplate spurring. Facets are symmetric. Sagittal and coronal reformatted images demonstrate normal alignment. Minimal C6-7 C7 disc space narrowing. No acute compression fracture, subluxation, or jumped facet. Normal appearing cranial cervical junction. Visualized noncontrasted soft tissues demonstrates minimal right carotid calcifications. Base of brain and lung apices unremarkable. Impression: Minimal C6-C7 degenerative changes and minimal right carotid calcifications. Remaining CT cervical spine is negative.
[2022-12-30 12:56] VITALS: BP 163/105; PULSE 96; O2SAT 98
== END 2022-12-30 13:03 | disposition home or self-care (01) ==
LOC: ED 10:04
DX: M62.838 Other muscle spasm (principal); M54.2 Cervicalgia; E11.9 Type 2 diabetes mellitus without complications; M79.602 Pain in left arm
CPT/HCPCS: 36415; 72125; 80053; 84484; 85025; 85610; 85730; 93005; 96372; 99284; J1885; J2360

== ENCOUNTER 2023-03-15 12:22 | Day surgery (SDC) | payer MEDICARE, OTHER ==
[2023-03-15] MEDS ORDERED: Depo-Medrol 40 MG/ML IM ONE (12:23)
[2023-03-15] MEDS ORDERED: BUPIVACAINE 0.5% VIAL IJ ONE (12:23)
[2023-03-15] MEDS ORDERED: DIPRIVAN 200 MG/20 ML IV ONE (14:16)
[2023-03-15] MEDS ORDERED: Lactated Ringers 1,000 ML IV ONE (15:38)
--- NOTE | 2023-03-15 16:35 | XRAY ---
Indication: Left shoulder and subacromial bursa injection. Intraoperative fluoroscopy provided for 26 seconds. 2 digital spot image submitted for interpretation demonstrates needle tip projecting over the left glenohumeral joint superiorly. Second needle tip subacromial. Small amount of contrast injected for both needle tip placement. Correlate with intraoperative findings/report.
--- NOTE | 2023-03-15 16:37 | XRAY ---
26 seconds of fluoroscopy was used in surgery for a left intra-articular shoulder and left subacromial bursa injection.
== END 2023-03-15 14:50 | disposition home or self-care (01) ==
LOC: SDC-PAIN 12:22
PROVIDERS: ATTEND Psychiatry & Neurology Pain Medicine
DX: M19.012 Primary osteoarthritis, left shoulder (principal); M75.52 Bursitis of left shoulder; Z79.899 Other long term (current) drug therapy
CPT/HCPCS: 20610; 73030; 77002; J1030; J2704; Q9966

== ENCOUNTER 2023-08-11 10:49 | Emergency (ER) | payer MEDICARE ==
--- NOTE | 2023-08-11 10:58 | ERPHSYRPT ---
- History of Present Illness Time Seen by Provider: 08/11/23 10:58 Source: patient Exam Limitations: no limitations Physician History: This is a 72-year-old white female patient of nurse practitioner Randall who presents with left side neck/posterior shoulder pain. Patient was reading a book during the evening last night and woke up this morning with pain in the distribution of her left trapezius muscle. She had a similar episode in December 2022. A CT scan of the cervical spine at that time showed minimal C6- C7 disc space narrowing with degenerative changes. Patient did not suffer any acute traumatic injury. I do not think the radiographic study is necessary. Patient does see Dr. Arevalo as her pain specialist. She is taking gabapentin for this type of pain. Patient has a history of hyperlipidemia, irritable bowel syndrome and osteoarthritis. Patient states her gabapentin is not helping control this pain. During her visit in December 2022, patient received an injection of Toradol as well as Norflex intramuscularly and this helped her pain quite a bit per her report and per the emergency department note reviewed on that date. Patient has no chest pain. Patient has no shortness of breath. Timing/Duration: today Severity: moderate Modifying Factors: Improves With: movement Associated Symptoms: denies symptoms Allergies/Adverse Reactions: No Known Drug Allergies Allergy (Verified 08/11/23 11:08) Home Medications: Gabapentin [Neurontin ] 1 tab PO TID 08/11/23 [History] Hx Tetanus, Diphtheria Vaccination/Date Given: Yes Hx Influenza Vaccination/Date Given: Yes Hx Pneumococcal Vaccination/Date Given: Yes Travel Risk - International Travel Have you traveled outside of the country in past 3 weeks: No - Coronavirus Screening Are you exhibiting any of the following symptoms?: No Close contact with a COVID-19 positive Pt in past 14-21 Days: No - Vaccine Status Have you recieved a Covid-19 vaccination: Yes 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: [employer] - Vaccination Dates Date of 2cond Vaccination (if applicable): 2020 - Review of Systems Constitutional: No Symptoms Eyes: No Symptoms Ears, Nose, & Throat: No Symptoms Respiratory: No Symptoms Cardiac: No Symptoms Abdominal/Gastrointestinal: No Symptoms Genitourinary Symptoms: No Symptoms Musculoskeletal: Neck Pain (Left lower paraspinous muscles as well as posterior trapezius muscle pain with neck movement) Skin: No Symptoms Neurological: No Symptoms Psychological: No Symptoms Endocrine: No Symptoms Hematologic/Lymphatic: No Symptoms Immunological/Allergic: No Symptoms All Other Systems: Reviewed and Negative - Past Medical History Pertinent Past Medical History: Yes Neurological History: No Pertinent History ENT History: Cataracts Cardiac History: High Cholesterol Respiratory History: Other Endocrine Medical History: No Pertinent History Musculoskeletal History: Osteoarthritis GI Medical History: Irritable Bowel History: No Pertinent History Psycho-Social History: No Pertinent History Female Reproductive Disorders: No Pertinent History Other Medical History: COVID-19, hemorrhoid removal, hysterectomy (1995), D&C (1973), L Carpal Tunnel Release - Past Surgical History Past Surgical History: Yes Neuro Surgical History: No Pertinent History Cardiac: No Pertinent History Respiratory: No Pertinent History Gastrointestinal: Hemorrhoidectomy Genitourinary: No Pertinent History Musculoskeletal: No Pertinent History Female Surgical History: Hysterectomy, Other Other Surgical History: bridger cataract removed with lense implants,wens removed from scalp. d&c - Social History Smoking Status: Never smoker Exposure to second hand smoke: No Drug Use: none Patient Lives Alone: No - Nursing Vital Signs Nursing Vital Signs: Initial Vital Signs Temperature 97.0 F 08/11/23 11:09 Pulse Rate 77 08/11/23 11:09 Respiratory Rate 18 08/11/23 11:09 Blood Pressure 153/79 08/11/23 11:09 O2 Sat by Pulse Oximetry 96 08/11/23 11:09 Pain Scale Pain Intensity 10 - Physical Exam General Appearance: no apparent distress, alert, anxiety, thin Eye Exam: PERRL/EOMI, eyes nml inspection Ears, Nose, Throat Exam: normal ENT inspection, moist mucous membranes Neck Exam: normal inspection, supple, full range of motion, other (Patient has no midline, cervical spine tenderness. There is reproducible tenderness to palpation of the trapezius muscle on the left side.) Respiratory Exam: airway intact, No chest tenderness, No respiratory distress Gastrointestinal/Abdomen Exam: No tenderness Pelvic Exam: not done Rectal Exam: not done Back Exam: normal inspection, normal range of motion, No CVA tenderness, No vertebral tenderness Extremity Exam: normal inspection, normal range of motion, pelvis stable Neurologic Exam: alert, oriented x 3, cooperative, data warehousing manager II-XII nml as tested, normal mood/affect, nml cerebellar function, nml station & gait, sensation nml Skin Exam: normal color, warm, dry Lymphatic Exam: adenopathy SpO2 Interpretation: normal O2 Delivery: Room Air - Course Nursing assessment & vital signs reviewed: Yes Ordered Tests: Medication Summary Discontinued Medications Generic Name Dose Route Start Last Admin Trade Name Neli PRN Reason Stop Dose Admin Hydrocodone Bitart/Acetaminophen 1 tab 08/11/23 11:46 Hydrocodone/Apap 5/325 1 Tab Tablet PO 08/11/23 11:47 STAT ONE Ketorolac Tromethamine 60 mg 08/11/23 11:46 Ketorolac Tromethamine 30 Mg/Ml Inj IM 08/11/23 11:47 STAT ONE Orphenadrine Citrate 60 mg 08/11/23 11:47 Orphenadrine Citrate 60 Mg/2 Ml Vial IM 08/11/23 11:48 STAT ONE - Progress Progress: improved, pain not gone completely, re-examined Progress Note: 08/11/23 12:00 This patient's medical issue is 1 of low complexity the level of complexity and the work-up performed is based on review of the patient's past medical history, review of the patient's medication list, review of the patient's drug allergy list, history present illness and physical findings on examination. This patient does not require any laboratory radiographic studies. Patient did not suffer any acute fall or trauma. She has muscle skeletal back pain/muscle spasms of the trapezius muscle on the left side. She has responded well in the past to Toradol and Norflex medication. We will provide her with a similar pain regimen here in the emergency department as well as prescriptions for home. Counseled pt/family regarding: diagnosis, need for follow-up Medical Desision Making - Diagnostic Testing Diagnostic test were ordered, analyzed, and reviewed by me: No - Risk of complications The pt has a mod risk of morbidity or mortality based on: Need for prescription drug management - Departure Departure Disposition: Home Clinical Impression: Trapezius muscle strain Condition: Stable Critical Care Time: No Referrals: MAZIN NELSON NP [Primary Care Provider] - Follow up/PCP as directed Additional Instructions: Alternate ice and heat to area of tenderness. May also apply lidocaine patch to the region. Follow directions on the [id number] product. Take the medication as prescribed. Follow-up with your primary care provider today, 08/11/2023, to make an appointment for further evaluation management. Prescriptions: Prednisone 10 mg [Deltasone 10 mg] 10 mg PO TID #12 tablet Orphenadrine Citrate 100 mg [Norflex 100 MG Tablet] 100 mg PO BID #10 tab
[2023-08-11 11:14] VITALS: TEMP 97
[2023-08-11] MEDS ORDERED: TORAdol 30 mg Injection IM ONE (11:46)
[2023-08-11] MEDS ORDERED: NORCO 5/325 MG PO ONE (11:46)
[2023-08-11] MEDS ORDERED: Norflex 60 MG/2 ML IM ONE (11:47)
[2023-08-11] MEDS ORDERED: NORCO 5/325 MG ONE (12:04)
[2023-08-11] MEDS ORDERED: TORAdol 30 mg Injection ONE (12:04)
[2023-08-11] MEDS ORDERED: Norflex 60 MG/2 ML ONE (12:04)
[2023-08-11 12:16] VITALS: BP 150/70; PULSE 74; RESP 17; O2SAT 98
== END 2023-08-11 12:30 | disposition home or self-care (01) ==
LOC: ED 10:49
DX: S16.1XXA Strain of muscle, fascia and tendon at neck level, initial encounter (principal); M54.2 Cervicalgia; M25.512 Pain in left shoulder; E78.5 Hyperlipidemia, unspecified; Z79.899 Other long term (current) drug therapy; Z79.52 Long term (current) use of systemic steroids; Z86.16 Personal history of COVID-19
CPT/HCPCS: 96372; 99283; J1885; J2360; A9270-GY